=== PATIENT | male | born 1965 | race Caucasian/White ===

== ENCOUNTER 2017-05-10 20:20 | Emergency (ER) | payer BC ==
[2017-05-10] MEDS ORDERED: SODIUM CHLORIDE 0.9% 1,000 ML IV STA (20:52)
[2017-05-10] MEDS ORDERED: MORPHINE SULFATE 4 MG/ML SYRINGE IV STA (20:52)
--- NOTE | 2017-05-10 21:03 | ED ---
General Adult HPI - General Chief complaint: Headache Stated complaint: uri with angina Time Seen by Provider: 05/10/17 20:51 Source: patient, family, RN notes reviewed, old records reviewed Mode of arrival: ambulatory Limitations: no limitations - History of Present Illness Initial comments: This is a 51-year-old male to the ER for evaluation of chest pain. Anginal type chest pain. Diaphoresis. Patient has history of heart disease with multiple medical comorbidities. Patient had and has been battling episode of bronchitis for about a week he had coughing fit tonight and then began to have severe chest pain. Mild nausea and lightheadedness. Patient's chest pain at this time is improved breathing does have mild headache - Related Data Home Medications Medication Instructions Recorded Confirmed Allopurinol [Zyloprim] 200 mg PO DAILY 10/26/13 05/10/17 Cholecalciferol [Vitamin D3] 1,000 unit PO DAILY 10/26/13 05/10/17 Fish Oil/Dha/Epa [Fish Oil 1,200 1 cap PO BID 10/26/13 05/10/17 mg Fish Oil] Isosorbide Mononitrate [Imdur] 60 mg PO DAILY 10/26/13 05/10/17 Multivitamins, Thera [Multivitamin 1 tab PO DAILY 06/17/15 05/10/17 (formulary)] Amiodarone [Cordarone] 200 mg PO DAILY 11/25/15 05/10/17 Aspirin EC [Ecotrin Low Dose] 81 mg PO DAILY 11/25/15 05/10/17 Rivaroxaban [Xarelto] 20 mg PO HS 11/25/15 05/10/17 Albuterol Sulfate [Proair Hfa] 2 puff INHALATION RT-Q4H PRN 05/10/17 05/10/17 Amiodarone [Cordarone] 100 mg PO DAILY 05/10/17 05/10/17 Lisinopril [Zestril] 10 mg PO BID 05/10/17 05/10/17 Metoprolol Tartrate [Lopressor] 100 mg PO BID 05/10/17 05/10/17 Previous Rx's Medication Instructions Recorded Atorvastatin [Lipitor] 80 mg PO HS #30 tab 06/21/15 metFORMIN HCL [Glucophage] 500 mg PO BID-W/MEALS #30 tab 06/21/15 Nitroglycerin Sl Tabs [Nitrostat] 0.4 mg SUBLINGUAL Q5M PRN #0 tab 07/13/15 Allergies Allergy/AdvReac Type Severity Reaction Status Date / Time No Known Allergies Allergy Verified 05/10/17 21:49 Review of Systems ROS Statement: Those systems with pertinent positive or pertinent negative responses have been documented in the HPI. ROS Other: All systems not noted in ROS Statement are negative. Past Medical History Past Medical History: Coronary Artery Disease (CAD), Chest Pain / Angina, Diabetes Mellitus, Hyperlipidemia, Hypertension, Pulmonary Embolus (PE), Sleep Apnea/CPAP/BIPAP Additional Past Medical History / Comment(s): NIDDM type II, pancreatitis thought due to gallstones, occasional L leg edema since CABG, buddy's syndrome, gout bilateral feet, fatty liver disease, sleep apnea-does not use device, STEMI 2015 History of Any Multi-Drug Resistant Organisms: None Reported Past Surgical History: Cholecystectomy, Coronary Bypass/CABG, Heart Catheterization, Heart Catheterization With Stent Additional Past Surgical History / Comment(s): 2002 CABG 4 vessels, last cardiac cath was 06/2015 and was tx medically, last cardiac stent was in 2009 ( has a total of 3 stents), RK bilateral eyes, vasectomy Past Anesthesia/Blood Transfusion Reactions: No Reported Reaction Additional Past Anesthesia/Blood Transfusion Reaction / Comment(s): Pt received blood with Buddy's syndrome and after cholecystectomy. Date of Last Stent Placement:: 2009 Past Psychological History: Depression Smoking Status: Former smoker Past Alcohol Use History: Occasional Past Drug Use History: None Reported - Past Family History Father Family Medical History: AFIB, AICD/Pacemaker Additional Family Medical History / Comment(s): CABG, CLL, skin cancer. Father at age 66. Mother Family Medical History: CVA/TIA Additional Family Medical History / Comment(s): Mother is 69 yrs old. General Exam Limitations: no limitations General appearance: alert, in no apparent distress, anxious Head exam: Present: atraumatic, normocephalic, normal inspection Eye exam: Present: normal appearance, PERRL, EOMI. Absent: scleral icterus, conjunctival injection, periorbital swelling ENT exam: Present: normal exam, mucous membranes moist Neck exam: Present: normal inspection. Absent: tenderness, meningismus, lymphadenopathy Respiratory exam: Present: normal lung sounds bilaterally. Absent: respiratory distress, wheezes, rales, rhonchi, stridor Cardiovascular Exam: Present: regular rate, normal rhythm, normal heart sounds. Absent: systolic murmur, diastolic murmur, rubs, gallop, clicks GI/Abdominal exam: Present: soft, normal bowel sounds. Absent: distended, tenderness, guarding, rebound, rigid Extremities exam: Present: normal inspection, full ROM, normal capillary refill. Absent: tenderness, pedal edema, joint swelling, calf tenderness Back exam: Present: normal inspection Neurological exam: Present: alert, oriented X3, CN II-XII intact Psychiatric exam: Present: normal affect, normal mood Skin exam: Present: warm, dry, intact, normal color. Absent: rash Course Vital Signs 05/10/17 05/10/17 05/10/17 20:22 21:22 22:00 Temperature 97.9 F Pulse Rate 79 69 68 Respiratory 18 18 18 Rate Blood Pressure 198/115 148/96 153/93 O2 Sat by Pulse 97 95 98 Oximetry 05/10/17 05/10/17 05/11/17 23:00 23:57 00:18 Temperature Pulse Rate 68 72 68 Respiratory 18 18 18 Rate Blood Pressure 166/99 162/96 168/93 O2 Sat by Pulse 97 96 97 Oximetry 05/11/17 01:20 Temperature 98.8 F Pulse Rate 66 Respiratory 20 Rate Blood Pressure 166/102 O2 Sat by Pulse 94 L Oximetry EKG Findings - EKG Comments: EKG Findings:: EKG shows sinus rhythm rate of 71, DC 134, QRS 110, QTc 4:30 Medical Decision Making - Medical Decision Making 51 male the ER with nonspecific chest pain. Troponin is negative 2, patient is on anticoagulation currently. Patient otherwise feels well. Patient can be discharged home - Lab Data Result diagrams: 05/10/17 21:20 05/10/17 21:20 Lab Results 05/10/17 05/10/17 05/10/17 Range/Units 21:20 21:20 21:20 WBC 8.9 (3.8-10.6) k/uL RBC 4.73 (4.30-5.90) m/uL Hgb 13.4 (13.0-17.5) gm/dL Hct 38.8 L (39.0-53.0) % MCV 82.0 (80.0-100.0) fL MCH 28.4 (25.0-35.0) pg MCHC 34.6 (31.0-37.0) g/dL RDW 13.7 (11.5-15.5) % Plt Count 307 (150-450) k/uL Neutrophils % 75 % Lymphocytes % 16 % Monocytes % 7 % Eosinophils % 1 % Basophils % 0 % Neutrophils # 6.7 (1.3-7.7) k/uL Lymphocytes # 1.4 (1.0-4.8) k/uL Monocytes # 0.6 (0-1.0) k/uL Eosinophils # 0.1 (0-0.7) k/uL Basophils # 0.0 (0-0.2) k/uL PT (9.0-12.0) sec INR (<1.2) APTT (22.0-30.0) sec D-Dimer (<0.60) mg/L FEU Sodium 138 (137-145) mmol/L Potassium 3.7 (3.5-5.1) mmol/L Chloride 103 (98-107) mmol/L Carbon Dioxide 25 (22-30) mmol/L Anion Gap 10 mmol/L BUN 18 (9-20) mg/dL Creatinine 0.72 (0.66-1.25) mg/dL Est GFR (MDRD) Af Amer >60 (>60 ml/min/1.73 sqM) Est GFR (MDRD) Non-Af >60 (>60 ml/min/1.73 sqM) Glucose 110 H (74-99) mg/dL Calcium 9.1 (8.4-10.2) mg/dL Phosphorus 3.4 (2.5-4.5) mg/dL Magnesium 1.7 (1.6-2.3) mg/dL Total Bilirubin 1.3 (0.2-1.3) mg/dL AST 25 (17-59) U/L ALT 57 (21-72) U/L Alkaline Phosphatase 106 (38-126) U/L Total Creatine Kinase 68 (55-170) U/L CK-MB (CK-2) 0.4 (0.0-2.4) ng/mL CK-MB (CK-2) Rel Index 0.6 Troponin I <0.012 (0.000-0.034) ng/mL NT-Pro-B Natriuret Pep pg/mL Total Protein 6.3 (6.3-8.2) g/dL Albumin 3.5 (3.5-5.0) g/dL 05/10/17 05/10/17 05/11/17 Range/Units 21:20 21:20 00:20 WBC (3.8-10.6) k/uL RBC (4.30-5.90) m/uL Hgb (13.0-17.5) gm/dL Hct (39.0-53.0) % MCV (80.0-100.0) fL MCH (25.0-35.0) pg MCHC (31.0-37.0) g/dL RDW (11.5-15.5) % Plt Count (150-450) k/uL Neutrophils % % Lymphocytes % % Monocytes % % Eosinophils % % Basophils % % Neutrophils # (1.3-7.7) k/uL Lymphocytes # (1.0-4.8) k/uL Monocytes # (0-1.0) k/uL Eosinophils # (0-0.7) k/uL Basophils # (0-0.2) k/uL PT 10.5 (9.0-12.0) sec INR 1.1 (<1.2) APTT 23.8 (22.0-30.0) sec D-Dimer 0.27 (<0.60) mg/L FEU Sodium (137-145) mmol/L Potassium (3.5-5.1) mmol/L Chloride (98-107) mmol/L Carbon Dioxide (22-30) mmol/L Anion Gap mmol/L BUN (9-20) mg/dL Creatinine (0.66-1.25) mg/dL Est GFR (MDRD) Af Amer (>60 ml/min/1.73 sqM) Est GFR (MDRD) Non-Af (>60 ml/min/1.73 sqM) Glucose (74-99) mg/dL Calcium (8.4-10.2) mg/dL Phosphorus (2.5-4.5) mg/dL Magnesium (1.6-2.3) mg/dL Total Bilirubin (0.2-1.3) mg/dL AST (17-59) U/L ALT (21-72) U/L Alkaline Phosphatase (38-126) U/L Total Creatine Kinase (55-170) U/L CK-MB (CK-2) (0.0-2.4) ng/mL CK-MB (CK-2) Rel Index Troponin I <0.012 (0.000-0.034) ng/mL NT-Pro-B Natriuret Pep 340 pg/mL Total Protein (6.3-8.2) g/dL Albumin (3.5-5.0) g/dL - Radiology Data Radiology results: report reviewed (CT brain chest x-ray negative), image reviewed Disposition Clinical Impression: Chest pain, Acute bronchitis, Headache Disposition: HOME SELF-CARE Condition: Good Instructions: Chest Pain (ED), Acute Headache (ED) Referrals: Devante Almonte DO [Primary Care Provider] - 1-2 days
[2017-05-10 21:38] LABS: Basophils % (A) 0 %; Eosinophils # (A) 0.1 k/uL (0-0.7); Eosinophils % (A) 1 %; HCT 38.8 % (39.0-53.0); HGB 13.4 gm/dL (13.0-17.5); Lymphocytes # (A) 1.4 k/uL (1.0-4.8); Lymphocytes % (A) 16 %; MCH 28.4 pg (25.0-35.0); MCHC 34.6 g/dL (31.0-37.0); Monocytes # (A) 0.6 k/uL (0-1.0); Monocytes % (A) 7 %; Neutrophils # (A) 6.7 k/uL (1.3-7.7); Neutrophils % (A) 75 %; Platelet Count 307 k/uL (150-450); RBC 4.73 m/uL (4.30-5.90); RDW 13.7 % (11.5-15.5); WBC 8.9 k/uL (3.8-10.6)
[2017-05-10 21:49] LABS: ALT 57 U/L (21-72); AST 25 U/L (17-59); Albumin 3.5 g/dL (3.5-5.0); Alkaline Phosphatase 106 U/L (38-126); Anion Gap 10 mmol/L; Blood Urea Nitrogen 18 mg/dL (9-20); Calcium 9.1 mg/dL (8.4-10.2); Carbon Dioxide 25 mmol/L (22-30); Chloride 103 mmol/L (98-107); Glucose 110 mg/dL (74-99); Magnesium 1.7 mg/dL (1.6-2.3); Phosphorus 3.4 mg/dL (2.5-4.5); Potassium 3.7 mmol/L (3.5-5.1); Sodium 138 mmol/L (137-145); Total Bilirubin 1.3 mg/dL (0.2-1.3); Total Protein 6.3 g/dL (6.3-8.2)
[2017-05-10 21:53] LABS: D-Dimer 0.27 mg/L FEU (<0.60); INR 1.1 (<1.2); Partial Thromboplastin Time 23.8 sec (22.0-30.0); Prothrombin Time 10.5 sec (9.0-12.0)
[2017-05-10 21:54] LABS: Creatine Kinase 68 U/L (55-170)
[2017-05-10 22:07] LABS: Creatine Kinase MB 0.4 ng/mL (0.0-2.4); Troponin I <0.012 ng/mL (0.000-0.034)
--- NOTE | 2017-05-10 22:07 | XR ---
EXAMINATION TYPE: XR chest 2V DATE OF EXAM: 05/10/2017 COMPARISON: 07/11/2015 HISTORY: Weakness TECHNIQUE: Frontal and lateral views of the chest are obtained. FINDINGS: There is mild infiltrate and atelectasis at the left lung base. There is no heart failure. Heart size is normal. There are sternal wires. There is no evidence of pleural effusion. There are c hest leads. IMPRESSION: There is some chronic density at the left lung base consistent with scarring and atelect asis without much change compared to old exam. No heart failure.
--- NOTE | 2017-05-10 22:33 | CT ---
EXAMINATION TYPE: CT brain wo con DATE OF EXAM: 05/10/2017 COMPARISON: NONE HISTORY: Hypertension with TRUJILLO. CT DLP: 1027.1 mGycm. Automated Exposure Control for Dose Reduction was Utilized. TECHNIQUE: CT scan of the head is performed without contrast. FINDINGS: There is fluid level and mucosal thickening in the left maxillary sinus. The ventricles h ave normal size. There is no mass effect nor midline shift. There is no sign of intracranial hemorrha ge. The calvarium appears intact. There is mild mucosal thickening in the ethmoid air cells. CONCLUSION: Mild ethmoid and left maxillary sinusitis. Otherwise negative exam.
[2017-05-11] MEDS ORDERED: METOPROLOL TARTRATE 50 MG TAB PO STA
[2017-05-11] MEDS ORDERED: AMIODARONE 200 MG TAB PO STA (00:01)
[2017-05-11 01:26] VITALS: BP 166/102; PULSE 66; RESP 20; TEMP 98.8
== END 2017-05-11 01:29 | disposition home or self-care (01) ==
LOC: EC 20:20
DX: J20.9 Acute bronchitis, unspecified (principal); R07.9 Chest pain, unspecified; R51 Headache; E11.9 Type 2 diabetes mellitus without complications; I25.119 Atherosclerotic heart disease of native coronary artery with unspecified angina pectoris; E78.5 Hyperlipidemia, unspecified; I10 Essential (primary) hypertension; G47.30 Sleep apnea, unspecified; Z86.711 Personal history of pulmonary embolism; Z99.89 Dependence on other enabling machines and devices; Z79.01 Long term (current) use of anticoagulants; Z79.82 Long term (current) use of aspirin; Z79.899 Other long term (current) drug therapy; Z95.818 Presence of other cardiac implants and grafts
CPT/HCPCS: 36415 ×2; 93005; 85379; 83880; 80053; 82550; 82553; 83735; 84100; 84484 ×2; 85025; 85610; 85730; 71046; 70450; 99285; 96374; 96361 ×4; J2270

== ENCOUNTER 2018-06-05 03:10 | Emergency (ER) | payer BC ==
[2018-06-05 03:15] VITALS: PULSE 0; RESP 0
[2018-06-05] MEDS ORDERED: SODIUM BICARB 8.4% 50 ML SYR (1 MEQ/ML) ONE (03:30)
[2018-06-05] MEDS ORDERED: EPINEPHrine 10 ML SYRINGE (0.1 MG/ML) ONE (03:30)
--- NOTE | 2018-06-05 03:42 | ED ---
CPR HPI - General Chief Complaint: Cardiac Arrest/CPR Stated Complaint: Chest Pain/ CPR Source: family (), EMS Mode of arrival: EMS Limitations: altered mental status (Unresponsive) - History of Present Illness Initial Comments: This patient is a 52-year-old man with history of CAD, status post CABG, brought by EMS after he had collapsed at home. The patient's had immediately started bystander CPR after activating EMS. On EMS arrival, patient found to be in V. fib. Patient had been started with ACLS protocol. An IO line was established, patient intubated. The patient received epinephrine, total of 5 mg, amiodarone, and had defibrillation 8. The patient did have brief ROS see, but then had lost pulses again and ACLS was reinstituted just prior to arrival here. The patient had been having some chest pain and had gotten up to use the bathroom and then had collapsed and become unresponsive just prior to activation of EMS. MD Complaint: collapsed during activity Onset/Timin -: hour(s) Place: home Bystander CPR Performed: Yes AED Applied by Bystander/Parts Identifier: Yes Shock Advised: Yes Number of Shocks Delivered: >3 (8) Initial Findings in the Field: VTACH/VFIB ROSC in the Field: Yes Associated Injuries: No Treatments Prior to Arrival: intubation, chest compressions, defibrillated shocks # (8), epinephrine mgs # (5), amiodarone - Related Data Home Medications Medication Instructions Recorded Confirmed Allopurinol [Zyloprim] 200 mg PO DAILY 10/26/13 05/10/17 Cholecalciferol [Vitamin D3] 1,000 unit PO DAILY 10/26/13 05/10/17 Fish Oil/Dha/Epa [Fish Oil 1,200 1 cap PO BID 10/26/13 05/10/17 mg Fish Oil] Isosorbide Mononitrate [Imdur] 60 mg PO DAILY 10/26/13 05/10/17 Multivitamins, Thera [Multivitamin 1 tab PO DAILY 06/17/15 05/10/17 (formulary)] Amiodarone [Cordarone] 200 mg PO DAILY 11/25/15 05/10/17 Aspirin EC [Ecotrin Low Dose] 81 mg PO DAILY 11/25/15 05/10/17 Rivaroxaban [Xarelto] 20 mg PO HS 11/25/15 05/10/17 Albuterol Sulfate [Proair Hfa] 2 puff INHALATION RT-Q4H PRN 05/10/17 05/10/17 Amiodarone [Cordarone] 100 mg PO DAILY 05/10/17 05/10/17 Lisinopril [Zestril] 10 mg PO BID 05/10/17 05/10/17 Metoprolol Tartrate [Lopressor] 100 mg PO BID 05/10/17 05/10/17 Previous Rx's Medication Instructions Recorded Atorvastatin [Lipitor] 80 mg PO HS #30 tab 06/21/15 metFORMIN HCL [Glucophage] 500 mg PO BID-W/MEALS #30 tab 06/21/15 Nitroglycerin Sl Tabs [Nitrostat] 0.4 mg SUBLINGUAL Q5M PRN #0 tab 07/13/15 Allergies Allergy/AdvReac Type Severity Reaction Status Date / Time No Known Allergies Allergy Verified 06/05/18 03:15 Review of Systems ROS Statement: Those systems with pertinent positive or pertinent negative responses have been documented in the HPI. ROS Other: All systems not noted in ROS Statement are negative. Limitations: ROS unobtainable due to patients medical condition (Unresponsive) Past Medical History Past Medical History: Coronary Artery Disease (CAD), Chest Pain / Angina, Diabetes Mellitus, Hyperlipidemia, Hypertension, Pulmonary Embolus (PE), Sleep Apnea/CPAP/BIPAP Additional Past Medical History / Comment(s): NIDDM type II, pancreatitis thought due to gallstones, occasional L leg edema since CABG, buddy's syndrome, gout bilateral feet, fatty liver disease, sleep apnea-does not use device, STEMI 2015 History of Any Multi-Drug Resistant Organisms: None Reported Past Surgical History: Cholecystectomy, Coronary Bypass/CABG, Heart Catheterization, Heart Catheterization With Stent Additional Past Surgical History / Comment(s): 2002 CABG 4 vessels, last cardiac cath was 06/2015 and was tx medically, last cardiac stent was in 2009 (has a total of 3 stents), RK bilateral eyes, vasectomy Past Anesthesia/Blood Transfusion Reactions: No Reported Reaction Additional Past Anesthesia/Blood Transfusion Reaction / Comment(s): Pt received blood with Buddy's syndrome and after cholecystectomy. Date of Last Stent Placement:: 2009 Past Psychological History: Depression Smoking Status: Former smoker Past Alcohol Use History: Occasional Past Drug Use History: None Reported - Past Family History Father Family Medical History: AFIB, AICD/Pacemaker Additional Family Medical History / Comment(s): CABG, CLL, skin cancer. Father at age 66. Mother Family Medical History: CVA/TIA Additional Family Medical History / Comment(s): Mother is 69 yrs old. General Exam Limitations: no limitations General appearance: other (Unresponsive) Head exam: Present: atraumatic, normocephalic Eye exam: Present: normal appearance, other (Pupils unreactive) ENT exam: Present: other (There is an endotracheal tube and bite block) Neck exam: Present: normal inspection Respiratory exam: Present: other (Bilateral breath sounds with bagging. No spontaneous inspiratory effort) Cardiovascular Exam: Present: other (No cardiac sounds to auscultation. No palpable PMI. No detectable pulses at the carotid, femoral or radial arteries). Absent: regular rate, normal rhythm, normal heart sounds GI/Abdominal exam: Present: soft. Absent: distended, pulsatile mass Extremities exam: Present: normal inspection, other (There is an IO line left pretibial area) Back exam: Present: normal inspection Neurological exam: Present: other (Unresponsive. GCS 3. No cranial nerve or deep tendon reflexes) Skin exam: Present: dry, cyanosis. Absent: rash Course Vital Signs 06/05/18 03:12 Pulse Rate 0 L Respiratory 0 L Rate O2 Sat by Pulse 0 L Oximetry Medical Decision Making - Medical Decision Making Patient is a 52-year-old man with V. fib arrest at home. EMS did instituted ACLS protocol briefly having ROSC which deteriorated into PDA at a rate of approximately 30. ACLS continued here, please see the code sheet. I did place an ultrasound probe the precordial area which showed that there was only the most minimal twitching of the myocardium with the PEA. Given no further response to ACLS protocol, the patient went to asystole and pronounced at 0328. Case discussed with cardiology on-call, , at 3 points, once prior to arrival and twice during resuscitative efforts, his treatment recommendations are incorporated. We did attempt to page Dr. Almonte. Case discussed with medical assistant dermatology and they will attempt to reach Dr. Almonte in the morning. Disposition Clinical Impression: Cardiac arrest Disposition: Condition: Undetermined Referrals: Devante Almonte DO [Primary Care Provider] - 1-2 days Preliminary Cause of : Cardiac arrest
== END 2018-06-05 05:33 | disposition expired ==
LOC: EC 03:10
DX: I46.9 Cardiac arrest, cause unspecified (principal); I25.119 Atherosclerotic heart disease of native coronary artery with unspecified angina pectoris; I10 Essential (primary) hypertension; G47.30 Sleep apnea, unspecified; I25.2 Old myocardial infarction; Z79.01 Long term (current) use of anticoagulants; Z79.82 Long term (current) use of aspirin; Z79.899 Other long term (current) drug therapy; Z95.1 Presence of aortocoronary bypass graft; Z95.5 Presence of coronary angioplasty implant and graft; Z87.891 Personal history of nicotine dependence; Z86.711 Personal history of pulmonary embolism
CPT/HCPCS: 99285; J0171